=== PATIENT | female | born 1975 | race Caucasian/White ===

== ENCOUNTER 2019-03-08 17:47 | Emergency (ER) | payer OTHER ==
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
[2019-03-08] MEDS ORDERED: Bupivacaine 0.5%/EPINEPHrine 1:200,000 30 ML SDV INJECT ONE (18:30)
[2019-03-08] MEDS ORDERED: Diphtheria,Pertussis(Acell),Tetanus Vaccine 0.5 ML Syringe IM ONE (18:35)
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
[2019-03-08] MEDS ORDERED: ceFAZolin 1 GM Vial IM ONE (20:27)
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
== END 2019-03-08 20:58 | disposition home or self-care (01) ==
LOC: VM.ED 17:47
DX: S51.012A Laceration without foreign body of left elbow, initial encounter (principal); Z88.8 Allergy status to other drugs, medicaments and biological substances; V86.59XA Driver of other special all-terrain or other off-road motor vehicle injured in nontraffic accident, initial encounter
CPT/HCPCS: 12032; 73070; 73080; 90471; 90715; 96372; 99283; J0690; J3490; 12002; 12052

== ENCOUNTER 2020-06-21 07:56 | Emergency (ER) | payer OTHER ==
[2020-06-21] MEDS ORDERED: EPINEPHrine 1 MG/ML SDV IM ONE (07:59)
[2020-06-21] MEDS ORDERED: Sodium Chloride 0.9% 10 ML Syringe FLUSH PRN (07:59)
[2020-06-21] MEDS ORDERED: diphenhydrAMINE 50 MG/ML SDV IVPUSH ONE (07:59)
[2020-06-21] MEDS ORDERED: methylPREDNISolone Sodium Succinate 125 MG/2 ML SDV IVPUSH ONE (08:00)
[2020-06-21] MEDS ORDERED: Famotidine 20 MG/2 ML SDV IVPUSH ONE (08:00)
[2020-06-21] MEDS ORDERED: EPINEPHrine 1 MG/1 ML Amp SUBCUT ONE (08:23)
--- NOTE | 2020-06-21 18:19 | EDM.PDOC ---
ED HPI GENERAL MEDICAL PROBLEM - General Chief Complaint: Allergic Reaction Stated Complaint: ALLERGIC REACTION Time Seen by Provider: 06/21/20 08:00 Source of Information: Reports: Patient History Limitations: Reports: No Limitations - History of Present Illness INITIAL COMMENTS - FREE TEXT/NARRATIVE: Pt. presents to ER with complaints of rash, facial swelling, wheezing, and t hroat tightness that started in the night gradually. Pt. states that she is not sure specifically caused the reaction, but states that she used some ambesol for tooth pain, and she also ate some nuts. She has no known allergy to this agents, or any other history of allergic reaction. Pt. denies any chest pain. Complains of wheezing but no significant shortness of breath. She states that the rash primarily involves her face and hands and her torso is spared. Denies any nausea, vomiting, or diarrhea. No abdominal pain. Denies any ill contacts. No fever or chills. - Related Data Allergies Allergy/AdvReac Type Severity Reaction Status Date / Time metals Allergy Cannot Uncoded 06/21/20 09:33 Remember Home Meds: Home Meds . [No Known Home Meds] 03/08/19 [History] Past Medical History - Past Health History Medical/Surgical History: Denies Medical/Surgical History Neurological History: Reports: Seizure - Past Surgical History HEENT Surgical History: Reports: Tonsillectomy GI Surgical History: Reports: Cholecystectomy Female Surgical History: Reports: Tubal Ligation Social & Family History - Tobacco Use Tobacco Use Status *Q: Never Tobacco User - Alcohol Use Days Per Week of Alcohol Use: 3 Number of Drinks Per Day: 1 Total Drinks Per Week: 3 - Recreational Drug Use Recreational Drug Use: No ED ROS ALLERGIC REACTION - Review of Systems Review Of Systems: See Below Constitutional: Reports: No Symptoms. Denies: Fever, Chills, Weakness, Fatigue, Diaphoresis HEENT: Reports: Throat Pain, Throat Swelling Respiratory: Reports: Wheezing Cardiovascular: Reports: No Symptoms Endocrine: Reports: No Symptoms GI/Abdominal: Reports: No Symptoms : Reports: No Symptoms Musculoskeletal: Reports: No Symptoms Skin: Reports: Pruritis, Rash Neurological: Reports: No Symptoms Psychiatric: Reports: No Symptoms Hematologic/Lymphatic: Reports: No Symptoms Immunologic: Reports: No Symptoms ED EXAM GENERAL NO PERIP PULSE - Physical Exam Exam: See Below Exam Limited By: No Limitations General Appearance: Alert, WD/WN, No Apparent Distress Nose: Normal Inspection, Normal Mucosa, No Blood Throat/Mouth: Normal Inspection, Normal Lips, Normal Teeth, Normal Gums, Normal Oropharynx, Normal Voice, No Airway Compromise Head: Atraumatic, Facial Swelling Neck: Normal Inspection, Supple, Non-Tender, Full Range of Motion Respiratory/Chest: Wheezing, Other (Mild wheezing, improved with epinephrine. No stridor noted.) GI/Abdominal: Normal Bowel Sounds, Soft, Non-Tender (Female) Exam: Deferred Rectal (Female) Exam: Deferred Back Exam: Normal Inspection, Full Range of Motion Neurological: Alert, Oriented, CN II-XII Intact, Normal Cognition, Normal Reflexes, No Motor/Sensory Deficits Psychiatric: Normal Affect, Normal Mood Skin Exam: Erythema, Other (Erythema and swelling to face.) Course - Vital Signs Last Recorded V/S: Last Vital Signs Temp 36.8 C 06/21/20 08:00 Pulse 82 06/21/20 10:15 Resp 16 06/21/20 10:15 BP 186/86 H 06/21/20 10:15 Pulse Ox 100 06/21/20 10:15 - Orders/Labs/Meds Orders: Active Orders 24 hr Category Date Time Status Peripheral IV Insertion Adult [OM.PC] Routine Oth 06/21/20 07:59 Ordered Meds: Medications Discontinued Medications Generic Name Dose Route Start Last Admin Trade Name Kwameq PRN Reason Stop Dose Admin Diphenhydramine HCl 50 mg 06/21/20 07:59 06/21/20 08:25 Benadryl IVPUSH 06/21/20 08:00 50 mg ONETIME ONE Administration Epinephrine HCl 0.5 mg 06/21/20 07:59 06/21/20 09:50 Adrenalin IM 06/21/20 08:00 Not Given ONETIME ONE Epinephrine HCl 0.5 mg 06/21/20 08:23 06/21/20 08:00 Adrenalin SUBCUT 06/21/20 08:24 0.5 mg ONETIME ONE Administration Famotidine 20 mg 06/21/20 08:00 06/21/20 08:25 Pepcid IVPUSH 06/21/20 08:01 20 mg ONETIME ONE Administration Methylprednisolone Sodium Succinate 125 mg 06/21/20 08:00 06/21/20 08:25 Solu-Medrol IVPUSH 06/21/20 08:01 125 mg ONETIME ONE Administration Sodium Chloride 10 ml 06/21/20 07:59 Saline Flush FLUSH ASDIRECTED PRN Keep Vein Open Departure - Departure Time of Disposition: 06:23 Disposition: Home, Self-Care 01 Clinical Impression: Anaphylactic reaction - Discharge Information Instructions: Allergies, Adult, [id number], Anaphylactic Reaction, Adult, How to Use an Auto-Injector Pen, Prednisone tablets Referrals: Barb Mora [employer]APH[employer] EDIT TECHNICIAN [Primary Care Provider] - Forms: ED Department Discharge Additional Instructions: Prednisone 40mg once daily for 7 days Benadryl 25mg OTC 2 tabs every 4-6 hours as needed for itching. Fill script for epipen tomorrow. Use as directed for severe reaction. Repeat as needed x1, and come to ER [facility]. Return to ER if you have worsening shortness of breath, trouble swallowing, or other worrisome signs/symptoms. Sepsis Event Note (ED) - Evaluation Sepsis Screening Result: No Definite Risk - Focused Exam Vital Signs: Vital Signs Temp Pulse Resp BP Pulse Ox 06/21/20 10:15 82 16 186/86 H 100 06/21/20 09:15 78 16 168/82 H 100 06/21/20 08:20 82 16 172/86 H 99 06/21/20 08:00 36.8 C 89 16 174/105 H 99 - Problem List Review Problem List Initiated/Reviewed/Updated: Yes - My Orders Last 24 Hours: My Active Orders 06/21/20 07:59 Peripheral IV Insertion Adult [OM.PC] Routine - Assessment/Plan Last 24 Hours: My Active Orders 06/21/20 07:59 Peripheral IV Insertion Adult [OM.PC] Routine Plan: Prednisone 40mg once daily for 7 days Benadryl 25mg OTC 2 tabs every 4-6 hours as needed for itching. Fill script for epipen tomorrow. Use as directed for severe reaction. Repeat as needed x1, and come to ER [facility]. Return to ER if you have worsening shortness of breath, trouble swallowing, or other worrisome signs/symptoms.
== END 2020-06-21 10:20 | disposition home or self-care (01) ==
LOC: VM.ED 07:56
DX: T78.2XXA Anaphylactic shock, unspecified, initial encounter (principal)
CPT/HCPCS: 96372; 96374; 96375; 99283; 99284-25; J0171; J1200; J2930; J3490

== ENCOUNTER 2023-05-20 06:35 | Emergency (ER) | payer OTHER ==
[2023-05-20 07:32] LABS: BASOPHILS PERCENT AUTO 0.4 % (0.2-1.2); EOSINOPHILS ABSOLUTE AUTO 0.4 x10^3/uL (0.0-0.5); EOSINOPHILS PERCENT AUTO 4.3 % (0.0-4.0); HEMATOCRIT 37.3 % (33.0-47.0); HEMOGLOBIN 12.7 g/dL (12.0-16.0); IMMATURE GRAN ABSOLUTE AUTO 0.01 x10^3/uL (0.00-0.07); LYMPHOCYTES ABSOLUTE AUTO 2.6 x10^3/uL (1.0-4.8); LYMPHOCYTES PERCENT AUTO 30.5 % (25.0-50.0); MEAN CORPUSCULAR HEMOGLOBIN 30.8 pg (26.0-32.0); MEAN CORPUSCULAR VOLUME 90.3 fL (78.0-93.0); MONOCYTES ABSOLUTE AUTO 0.8 x10^3/uL (0.0-0.8); MONOCYTES PERCENT AUTO 9.2 % (2.0-11.0); NEUTROPHILS ABSOLUTE AUTO 4.6 x10^3/uL (1.8-7.7); NEUTROPHILS PERCENT AUTO 55.5 % (50.0-80.0); PLATELET COUNT,PLT 238 x10^3/uL (130-400); RED BLOOD CELL COUNT 4.13 x10^6/uL (4.00-5.50); WHITE BLOOD CELL COUNT,WBC 8.4 x10^3/uL (4.0-10.0)
[2023-05-20 07:49] LABS: A/G RATIO 1.03; ALBUMIN 3.3 g/dL (3.4-5.0); BILIRUBIN TOTAL 0.6 mg/dL (0.2-1.0); CALCIUM 8.4 mg/dL (8.5-10.1); CREATININE 0.7 mg/dL (0.55-1.02); EST CRCL DRUG DOSING (CG) 86.52 mL/min; PROTEIN TOTAL,TP 6.5 g/dL (6.4-8.2)
[2023-05-20 07:52] LABS: ANION GAP 8.9 mmol/L (5-15)
[2023-05-20 07:53] LABS: POTASSIUM,K 2.9 mmol/L (3.5-5.1)
== END 2023-05-20 08:04 | disposition home or self-care (01) ==
LOC: VM.ED 06:35
DX: R07.89 Other chest pain (principal); E87.6 Hypokalemia; Z91.048 Other nonmedicinal substance allergy status; Z79.899 Other long term (current) drug therapy
CPT/HCPCS: 36415; 71045; 80053; 84484; 85025; 93005; 93010; 99284; 99285

== ENCOUNTER 2024-03-09 11:31 | Emergency (ER) | payer OTHER ==
[2024-03-09] MEDS: HYDROmorphone 1 MG/ML Syringe SUBCUT ONE (11:59)
[2024-03-09] MEDS: Lidocaine 1% 30 ML SDV INJECT ONE (13:36)
[2024-03-09] MEDS: Take Home: Amoxicillin/Clavulanate K 875-125 MG Tab, 2 Tab Pack PO ONE (14:51)
[2024-03-09] MEDS: Take Home: Acetaminophen/Codeine 300 MG/30 MG, 5 Tab Pack PO ONE (14:52)
== END 2024-03-09 14:55 | disposition home or self-care (01) ==
LOC: VM.ED 11:31
DX: S92.101A Unspecified fracture of right talus, initial encounter for closed fracture (principal); S81.811A Laceration without foreign body, right lower leg, initial encounter; Z91.048 Other nonmedicinal substance allergy status; Z88.8 Allergy status to other drugs, medicaments and biological substances; W55.12XA Struck by horse, initial encounter
CPT/HCPCS: 12032; 73590-RT; 73630-RT; 96372; 99283; A9270-GY; J1170; J3490